=== PATIENT | male | born 1975 | race Caucasian/White ===

== ENCOUNTER 2017-02-06 01:31 | Emergency (ER) | payer BC, MEDICAID ==
[2017-02-06] MEDS ORDERED: Sodium Chloride 0.9% 1,000 ML IV ONE (02:53)
[2017-02-06] MEDS ORDERED: Ondansetron 4 MG/2 ML SDV IV ONE (03:21)
[2017-02-06] MEDS ORDERED: Pantoprazole 40 MG Vial IVPUSH ONE (03:21)
--- NOTE | 2017-02-06 03:21 | EDM.PDOC ---
ED HPI GENERAL MEDICAL PROBLEM - General Chief Complaint: Gastrointestinal Problem Stated Complaint: STOMACH PAIN [id number] Time Seen by Provider: 02/06/17 02:55 Source of Information: Reports: Patient History Limitations: Reports: No Limitations - History of Present Illness INITIAL COMMENTS - FREE TEXT/NARRATIVE: bloody bright red watery stools since 10am with cramping lower abdomen. No previous episodes. Feels dizzy and weak, sweating and chills with stools. Denies similar hx, brother recently diagnosed with colitis. No vomiting. Bilateral Lower Abdomen Pain Score (Numeric/FACES): 7 - Related Data Allergies Allergy/AdvReac Type Severity Reaction Status Date / Time No Known Allergies Allergy Verified 02/06/17 02:51 Home Meds: Home Meds Divalproex Sodium [Divalproex Sodium] 750 mg PO DAILY 02/06/17 [History] Past Medical History HEENT History: Reports: None Cardiovascular History: Reports: None Respiratory History: Reports: None Gastrointestinal History: Reports: Hemorrhoids Genitourinary History: Reports: None Musculoskeletal History: Reports: Fracture Neurological History: Reports: None Psychiatric History: Reports: Bipolar Endocrine/Metabolic History: Reports: None Hematologic History: Reports: None Immunologic History: Reports: None Oncologic (Cancer) History: Reports: None Dermatologic History: Reports: None - Infectious Disease History Infectious Disease History: Reports: Chicken Pox - Past Surgical History HEENT Surgical History: Reports: None Cardiovascular Surgical History: Reports: None Respiratory Surgical History: Reports: None GI Surgical History: Reports: None Male Surgical History: Reports: None Musculoskeletal Surgical History: Reports: None Social & Family History - Tobacco Use Smoking Status *Q: Current Every Day Smoker Years of Tobacco use: 22 Packs/Tins Daily: 1 - Caffeine Use Caffeine Use: Reports: Soda - Recreational Drug Use Recreational Drug Use: No ED ROS GENERAL - Review of Systems Review Of Systems: ROS reveals no pertinent complaints other than HPI. Constitutional: Reports: Chills, Diaphoresis HEENT: Reports: Eye Discharge Respiratory: Reports: No Symptoms Cardiovascular: Reports: Lightheadedness GI/Abdominal: Reports: Abdominal Pain, Diarrhea : Reports: No Symptoms Musculoskeletal: Reports: No Symptoms Skin: Reports: No Symptoms Neurological: Reports: No Symptoms Psychiatric: Reports: No Symptoms ED EXAM, GI/ABD - Physical Exam Exam: See Below Exam Limited By: No Limitations General Appearance: Alert, Moderate Distress Eyes: Bilateral: EOMI Ears: Normal External Exam Nose: Normal Inspection Throat/Mouth: Normal Inspection Head: Atraumatic, Normocephalic Neck: Normal Inspection, Full Range of Motion Respiratory/Chest: No Respiratory Distress, Lungs Clear, Normal Breath Sounds Cardiovascular: Normal Peripheral Pulses, Regular Rate, Rhythm GI/Abdominal Exam: Soft, No Distention, Tender, Abnormal Bowel Sounds ( hyperactive). No: Distended, Rebound Back Exam: Normal Inspection, Full Range of Motion. No: CVA Tenderness (L), CVA Tenderness (R) Extremities: Normal Inspection, Normal Range of Motion Neurological: Alert, Oriented, Normal Cognition Psychiatric: Normal Affect, Normal Mood Skin Exam: Warm, Dry, Intact, Normal Color, No Rash Course - Vital Signs Last Recorded V/S: Last Vital Signs Temp 98.8 F 02/06/17 02:53 Pulse 76 02/06/17 05:11 Resp 18 02/06/17 05:11 BP 125/72 02/06/17 05:11 Pulse Ox 98 02/06/17 05:11 - Orders/Labs/Meds Labs: Laboratory Tests 02/06/17 02/06/17 02/06/17 Range/Units 03:05 03:05 03:05 WBC 10.4 H (5.0-10.0) 10^3/uL RBC 5.63 (4.6-6.2) 10^6/uL Hgb 17.2 (14.0-18.0) g/dL Hct 49.4 (40.0-54.0) % MCV 87.7 (80-100) fL MCH 30.6 (27.0-34.0) pg MCHC 34.8 (33.0-35.0) g/dL Plt Count 184 (150-450) 10^3/uL Neut % (Auto) 81.2 H (42.2-75.2) % Lymph % (Auto) 11.3 L (20.5-50.1) % Greenlee % (Auto) 7.3 (2-8) % Eos % (Auto) 0.0 L (1.0-3.0) % Baso % (Auto) 0.2 (0.0-1.0) % Sodium 138 (135-145) mmol/L Potassium 3.8 (3.6-5.0) mmol/L Chloride 101 (101-111) mmol/L Carbon Dioxide 24.0 (21.0-31.0) mmol/L Anion Gap 16.8 BUN 18 (7-18) mg/dL Creatinine 1.0 (0.6-1.3) mg/dL Est Cr Clr Drug Dosing 90.43 mL/min Estimated GFR (MDRD) > 60 BUN/Creatinine Ratio 18.00 Glucose 139 H (74-105) mg/dL Calcium 9.3 (8.4-10.2) mg/dl Total Bilirubin 0.8 (0.2-1.0) mg/dL AST 21 (10-42) IU/L ALT 17 (10-60) IU/L Alkaline Phosphatase 39 L (42-121) IU/L C-Reactive Protein 0.5 (0.0-1.3) mg/dL Total Protein 7.3 (6.7-8.2) g/dl Albumin 4.3 (3.2-5.5) g/dl Globulin 3.0 Albumin/Globulin Ratio 1.43 Amylase 39 (28-100) U/L Lipase 18 L (22-51) U/L Meds: Medications Discontinued Medications Generic Name Dose Route Start Last Admin Trade Name Freq PRN Reason Stop Dose Admin Sodium Chloride 1,000 mls @ 999 mls/hr 02/06/17 02:53 02/06/17 03:18 Normal Saline IV 02/06/17 03:53 999 mls/hr .BOLUS ONE Administration Sodium Chloride 1,000 mls @ 500 mls/hr 02/06/17 05:00 02/06/17 05:09 Normal Saline IV 500 mls/hr ASDIRECTED MASHA Administration Iopamidol 75 ml 02/06/17 03:38 02/06/17 03:42 Isovue-300 (61%) IVPUSH 02/06/17 03:39 75 ml ONETIME ONE Administration Metoclopramide HCl 10 mg 02/06/17 05:01 02/06/17 05:06 Reglan IVPUSH 02/06/17 05:02 10 mg ONETIME ONE Administration Morphine Sulfate 2 mg 02/06/17 04:23 02/06/17 04:28 Morphine IVPUSH 02/06/17 04:24 2 mg ONETIME ONE Administration Ondansetron HCl 4 mg 02/06/17 03:21 02/06/17 03:27 Zofran IV 02/06/17 03:22 4 mg ONETIME ONE Administration Pantoprazole Sodium 40 mg 02/06/17 03:21 02/06/17 03:28 Protonix Iv IVPUSH 02/06/17 03:22 40 mg ONETIME ONE Administration - Re-Assessments/Exams Free Text/Narrative Re-Assessment/Exam: 02/16/17 06:[address] Colton Rodriguez, accepting of patient for further evaluation and management of GI bleed. Tx via [facility]. Departure - Departure Time of Disposition: 05:20 Disposition: DC/Tfer to Acute Hospital 02 Condition: Fair Clinical Impression: Diarrhea, Dehydration, Lower GI bleed - Discharge Information Referrals: PCP,None [Primary Care Provider] - Forms: ED Department Discharge, Interfacility Transfer [facility]
[2017-02-06 03:30] LABS: CHLORIDE,CL 101 mmol/L (101-111); SODIUM,NA 138 mmol/L (135-145)
[2017-02-06] MEDS ORDERED: Iopamidol 612 MG/ML 75 ML Bottle IVPUSH ONE (03:38)
[2017-02-06] MEDS ORDERED: Morphine 2 MG/ML Syringe IVPUSH ONE (04:23)
[2017-02-06] MEDS ORDERED: Sodium Chloride 0.9% 1,000 ML IV SCH (05:00)
[2017-02-06] MEDS ORDERED: Metoclopramide 10 MG/2 ML SDV IVPUSH ONE (05:01)
[2017-02-06 05:11] VITALS: BP 125/72
== END 2017-02-06 05:20 ==
LOC: DL.ED 01:31
DX: K92.2 Gastrointestinal hemorrhage, unspecified (principal); E86.0 Dehydration; R19.7 Diarrhea, unspecified; F17.210 Nicotine dependence, cigarettes, uncomplicated; Z79.899 Other long term (current) drug therapy
CPT/HCPCS: 36415; 74177; 80053; 82150; 82272; 83690; 85025; 86140; 87045; 87046; 87493; 87899; 96361; 96374; 96375; 99285; C9113; J2270; J2405; J2765; J7030; Q9967